=== PATIENT | female | born 1980 | race Caucasian/White ===

== ENCOUNTER → 2019-02-09 | Outpatient (CLI) | payer OTHER ==
--- NOTE | 2019-02-09 10:23 | US ---
EXAMINATION TYPE: US OB >= 14 wk fetus DATE OF EXAM: 02/09/2019 COMPARISON: None CLINICAL HISTORY: O36.63x0 large for dates,third trimester For Size and ALLAN TECHNIQUE: Transabdominal (TA) GESTATIONAL AGE / DATING Physician Established: (32 weeks/2 days) EDC: 04/04/2019 Dates by LMP: Unknown Dates by First Scan: No prior Dates by Current Scan: (32 weeks/0 days) EDC: 04/06/2019 SURVEY IUP: Single PLACENTA: Posterior PREVIA: No Previa ALLAN: 17.3 cm Normal CERVICAL LENGTH (transabdominal: norm > 3.0cm): 3.4 cm BIOMETRY PRESENTATION: Vertex BPD: 8.3 cm 33 weeks / 2 days HC: 29.9 cm 33 weeks / 1 days AC: 28.5 cm 32 weeks / 4 days FL: 6.0 cm 31 weeks / 3 days ESTIMATED WEIGHT IN GRAMS: 1949 grams ESTIMATED WEIGHT IN LBS/OZ: 4 lbs. 5 oz. WEIGHT PERCENTAGE BASED ON ESTABLISHED DATES: 40.3% HC/AC: 1.05 Normal FL/AC: 21 Normal HEART RATE: 158 bpm RHYTHM: Normal Single, live IUP, growth in 40th percentile IMPRESSION: Live intrauterine with a calculated sonographic age of 32 weeks and 0 days and estimated da te of delivery of 04/06/2010, concordant with menstrual age. Weight percentage based on established da zack of 40.3%. Amniotic fluid index is within normal limits at 17.3 cm.
== END ==
LOC: RADUSWWP 09:45
PROVIDERS: ATTEND Obstetrics & Gynecology
DX: O36.63X0 Maternal care for excessive fetal growth, third trimester, not applicable or unspecified (principal); Z3A.32 32 weeks gestation of pregnancy
CPT/HCPCS: 76805

== ENCOUNTER 2019-04-07 12:18 | Outpatient (CLI) | payer OTHER ==
[2019-04-07 13:07] VITALS: BP 121/73; PULSE 90; RESP 16; TEMP 98.4
--- NOTE | 2019-04-07 13:47 | US ---
EXAMINATION TYPE: US OB limited DATE OF EXAM: 04/07/2019 COMPARISON: NONE CLINICAL HISTORY: post-dates. ALLAN and EFW only EXAM PERFORMED: Transabdominal (TA) GESTATIONAL AGE / DATING Physician Established: (40 weeks/3 days) EDC: 04/04/2019 Dates by Current Scan: (39 weeks/4 days) EDC: 04/10/2019 No growth performed on today?s study per ordering physician SURVEY ALLAN: 12 cm Normal (Tech?if abnormal transabdominally?image transvaginally to substantiate abnormality.) PRESENTATION: Vertex HEART RATE: 165 bpm RHYTHM: Normal IMPRESSION: 1. Single intrauterine gestation estimated at 39 weeks 4 days gestation based on current ultrasound m easurements. Cardiac activity measures 165 bpm. 2. Amniotic fluid index is 12
== END 2019-04-07 13:45 | disposition home or self-care (01) ==
LOC: FBPOP 12:18
PROVIDERS: ATTEND Obstetrics & Gynecology
DX: O48.0 Post-term pregnancy (principal); Z3A.40 40 weeks gestation of pregnancy
CPT/HCPCS: 59025; 76815

== ENCOUNTER 2019-04-08 01:07 | Inpatient (IN) | payer OTHER ==
[2019-04-08] MEDS ORDERED: TERBUTALINE 1 MG/ML VIAL SQ PRN (01:34)
[2019-04-08] MEDS ORDERED: METHYLERGONOVINE 0.2 MG/ML 1 ML AMP IM PRN (01:34)
[2019-04-08] MEDS ORDERED: CARBOPROST TROMETHAMINE 250 MCG/ML 1 ML AMP IM PRN (01:34)
[2019-04-08] MEDS ORDERED: LIDOCAINE 0.5% (PF) 5 MG/ML (50 ML SDV) SQ PRN (01:34)
[2019-04-08] MEDS ORDERED: OXYTOCIN 10 UNIT/ML 1 ML VIAL IM PRN (01:34)
[2019-04-08] MEDS ORDERED: LACTATED RINGERS 1,000 ML IV SCH (01:45)
[2019-04-08 01:47] VITALS: BMI 31.6
[2019-04-08 01:55] LABS: Anisocytosis Moderate; Basophils # (A) 0.1 k/uL (0-0.2); Basophils % (A) 1 %; Eosinophils # (A) 0.1 k/uL (0-0.7); Eosinophils % (A) 1 %; HCT 38.4 % (34.0-46.0); HGB 12.3 gm/dL (11.4-16.0); Lymphocytes # (A) 0.9 k/uL (1.0-4.8); Lymphocytes % (A) 8 %; MCH 28.7 pg (25.0-35.0); MCHC 31.9 g/dL (31.0-37.0); MCV 89.9 fL (80.0-100.0); Mean Platelet Volume 8.7; Monocytes # (A) 0.7 k/uL (0-1.0); Monocytes % (A) 6 %; Neutrophils # (A) 9.1 k/uL (1.3-7.7); Neutrophils % (A) 82 %; Platelet Count 195 k/uL (150-450); RBC 4.27 m/uL (3.80-5.40); RDW 20.9 % (11.5-15.5)
[2019-04-08] MEDS ORDERED: diphenhydrAMINE 25 MG CAP PO PRN (03:03)
[2019-04-08] MEDS ORDERED: ACETAMINOPHEN TAB 325 MG TAB PO PRN (03:03)
[2019-04-08] MEDS ORDERED: HYDROCORTISONE 2.5% RECTAL CREAM 30 GM TUBE RECTAL PRN (03:03)
[2019-04-08] MEDS ORDERED: diphenhydrAMINE 50 MG/ML 1 ML VIAL IVP PRN ×2 (03:03)
[2019-04-08] MEDS ORDERED: diphenhydrAMINE 50 MG CAP PO PRN (03:03)
[2019-04-08] MEDS ORDERED: SIMETHICONE 80 MG CHEWABLE PO PRN (03:03)
[2019-04-08] MEDS ORDERED: BENZOCAINE/MENTHOL SPRAY 1 GM/SPRAY AEROSOL TOPICAL PRN (03:03)
[2019-04-08] MEDS ORDERED: ZOLPIDEM 5 MG TAB PO PRN (03:03)
[2019-04-08] MEDS ORDERED: WITCH HAZEL 1 EACH MED..PAD TOPICAL PRN (03:03)
[2019-04-08] MEDS ORDERED: LANOLIN CREAM 5 GM TUBE TOPICAL PRN (03:03)
--- NOTE | 2019-04-08 03:06 | P.HPOB ---
History of Present Illness H&P Date: 04/08/19 Chief Complaint: Intrauterine at 40 weeks: Active labor Megan is a 38-year-old at 40 weeks 4 days gestation arrives in active labor dilated 7 cm. Her course has been, complicated by advanced maternal age for which she is been receiving nonstress tests since approximately 34 weeks. She voices no other problems or complaints and did transfer to [facility] at approximately 26 weeks. Past medical history is generally unremarkable. Pertinent labs include O+ blood type, Rh and it was negative, rubella immune, hepatitis B surface antigen RPR and GBS were all negative. heart tones are reactive with baseline in the 140s. Past Medical History Past Medical History: No Reported History History of Any Multi-Drug Resistant Organisms: None Reported Additional Past Surgical History / Comment(s): [employer] tooth extraction Past Anesthesia/Blood Transfusion Reactions: No Reported Reaction Past Psychological History: No Psychological Hx Reported Smoking Status: Never smoker Past Alcohol Use History: None Reported Past Drug Use History: None Reported - Past Family History Mother Family Medical History: No Reported History Medications and Allergies Home Medications Medication Instructions Recorded Confirmed Type Pnv No.95/Ferrous Fum/Folic AC 1 each PO DAILY 03/03/19 04/08/19 History [ Multivitamin Tablet] Allergies Allergy/AdvReac Type Severity Reaction Status Date / Time amoxicillin Allergy Dyspnea Verified 04/08/19 01:33 erythromycin base Allergy Dyspnea Verified 04/08/19 01:33 Exam Osteopathic Statement: *. No significant issues noted on an osteopathic structural exam other than those noted in the History and Physical/Consult. Vital Signs Temp Pulse Resp BP 04/08/19 01:47 97.3 F L 109 H 16 126/86 04/08/19 01:42 97.3 F L 109 H 16 126/86 Intake and Output 04/07/19 04/07/19 04/08/19 14:59 22:59 06:59 Other: # Voids 2 Weight 88.904 kg - OBG Physical Exam Breast: both: normal (no masses) Abdomen: bowel sounds normal, no diffuse tenderness, no bruit present, no guarding noted, no hepatomegaly, no splenomegaly, no mass Vulva: both: normal Vagina: normal moisture, no discharge Cervix: no lesion, no discharge Uterus: normal size, normal contour Adnexa: both: normal Anus/Rectum: normal perianal skin, no rectal mass, no hemorrhoids, heme negative Results Result Diagrams: 04/08/19 01:40 Abnormal Lab Results - Last 24 Hours (Table) 04/08/19 Range/Units 01:40 WBC 11.0 H (3.8-10.6) k/uL RDW 20.9 H (11.5-15.5) % Neutrophils # 9.1 H (1.3-7.7) k/uL Lymphocytes # 0.9 L (1.0-4.8) k/uL
--- NOTE | 2019-04-08 03:07 | P.PROBDLV ---
Vaginal Delivery Note - . Vaginal Delivery Note: Patient progressed complete and pushing with spontaneous vaginal delivery of a viable female over a first-degree perineal laceration. Following delivery of the head a nuchal cord 1 was noted but was too taut and baby was therefore delivered through the nuchal cord from right occiput anterior position. Once baby was fully delivered mouth nares were bulb suctioned and baby was placed mother's abdomen where the umbilical cord was allowed to pulsate for 40 seconds prior to clamping and cutting. Nursery personnel was present and assumed care. Placenta was then delivered intact and Pitocin was added to the IV. scores were 9 and 9 at one and 5 minutes respectfully. First degree laceration was then repaired in interrupted fashion with 3-0 Vicryl following 1% Xylocaine for analgesia. Baby's weight is currently pending, but both mother and baby currently appear stable following delivery.
[2019-04-08] MEDS ORDERED: OXYTOCIN 20 UNITS/1000 ML NS 1,000 ML IV SCH (03:15)
[2019-04-08] MEDS: IBUPROFEN 600 MG TAB PO PRN ×3 (03:19→17:08)
--- NOTE | 2019-04-08 08:39 | P.PNOBGVD ---
Subjective - Subjective Principal diagnosis: day 0 Interval history: Doing very well this morning. All questions are answered for her at this time. Patient reports: Reports appetite normal, Reports voiding normally, Reports pain well controlled, Reports ambulating normally [place]: doing well Objective - Latest Vital Signs Latest vital signs: Vital Signs Temp Pulse Resp BP 04/08/19 08:00 98.3 F 71 16 122/73 04/08/19 04:50 65 16 115/71 04/08/19 04:20 81 16 108/70 04/08/19 03:50 74 16 113/68 04/08/19 03:35 83 16 121/69 04/08/19 03:20 92 16 114/64 04/08/19 03:05 96 16 112/63 04/08/19 02:50 98.3 F 105 H 16 118/67 04/08/19 01:47 97.3 F L 109 H 16 126/86 04/08/19 01:42 97.3 F L 109 H 16 126/86 Intake and Output 04/07/19 04/08/19 04/08/19 22:59 06:59 14:59 Other: # Voids 1 Weight 88.904 kg - Labs Labs: Abnormal Lab Results - Last 24 Hours (Table) 04/08/19 Range/Units 01:40 WBC 11.0 H (3.8-10.6) k/uL RDW 20.9 H (11.5-15.5) % Neutrophils # 9.1 H (1.3-7.7) k/uL Lymphocytes # 0.9 L (1.0-4.8) k/uL
[2019-04-08] MEDS: SENNOSIDES-DOCUSATE SODIUM 1 EACH TAB PO SCH ×2 (08:42→19:56)
[2019-04-09 00:27] VITALS: BP 109/50
[2019-04-09] MEDS: SENNOSIDES-DOCUSATE SODIUM 1 EACH TAB PO SCH (08:08)
--- NOTE | 2019-04-09 08:25 | P.DS ---
Providers Date of admission: 04/08/19 01:17 Expected date of discharge: 04/09/19 Attending physician: Luis A Vidal Primary care physician: Stated None Hospital Course: Megan is doing very well day 1. She is involuting, voiding and tolerating her diet. She voices no complaints. Vital signs are stable and afebrile. Heart regular, lungs clear, extremities are without pain. Abdomen is soft uterus is firm and lochia is reported to be light. Assessment day 1. Plan discharged home follow up with me in 6 weeks. Other discharge instructions are reviewed and patient is had all of her questions answered. She is stable for discharge this time. Patient Condition at Discharge: Good Plan - Discharge Summary New Discharge Prescriptions: No Action Pnv No.95/Ferrous Fum/Folic AC [ Multivitamin Tablet] 1 each PO DAILY Discharge Medication List Pnv No.95/Ferrous Fum/Folic AC [ Multivitamin Tablet] 1 each PO DAILY 03/03/19 [History] Follow up Appointment(s)/Referral(s): Luis A Vidal DO [Doctor of Osteopathic Medicine] - 6 Weeks Activity/Diet/Wound Care/Special Instructions: No heavy lifting, limit stairs and driving, and pelvic rest. If any high temperatures, heavy bleeding, or severe pain call my office Discharge Disposition: HOME SELF-CARE
[2019-04-09 08:33] VITALS: PULSE 86; RESP 18; TEMP 98.3
[2019-04-09] MEDS: IBUPROFEN 600 MG TAB PO PRN (10:36)
== END 2019-04-09 11:14 | disposition home or self-care (01) | DRG 807 ==
LOC: FBPOP 01:07 → 4FBP 01:17
PROVIDERS: ADMIT Obstetrics & Gynecology; ATTEND Obstetrics & Gynecology
PROC: 10E0XZZ Delivery of Products of Conception, External Approach (ICD-10-PCS; principal; 2019-04-08)
PROC: 0HQ9XZZ Repair Perineum Skin, External Approach (ICD-10-PCS; principal; 2019-04-08)
DX: O80 Encounter for full-term uncomplicated delivery (principal); Z37.0 Single live birth; O70.0 First degree perineal laceration during delivery; Z3A.40 40 weeks gestation of pregnancy; Z88.1 Allergy status to other antibiotic agents; Z88.0 Allergy status to penicillin
CPT/HCPCS: 59025; 85025; 86850; 86900; 86901; 99213

== ENCOUNTER 2023-09-11 12:49 | Emergency (ER) | payer OTHER ==
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
[2023-09-11 13:56] VITALS: RESP 18
[2023-09-11 13:59] LABS: HCT 34.9 % (34.0-46.0); HGB 11.6 gm/dL (11.4-16.0); MCH 31.5 pg (25.0-35.0); MCHC 33.3 g/dL (31.0-37.0); MCV 94.4 fL (80.0-100.0); Mean Platelet Volume 9.3; Platelet Count 208 k/uL (150-450); WBC 10.6 k/uL (3.8-10.6)
[2023-09-11 14:05] LABS: Appearance,Urine Clear (Clear); Bilirubin,Urine Negative (Negative); Blood,Urine Negative (Negative); Color,Urine Light Yellow; Glucose,Urine (UA) Negative (Negative); Ketones,Urine Negative (Negative); Leukocyte Esterase,Urine Negative (Negative); Nitrite,Urine Negative (Negative); PH, Urine 5.5 (5.0-8.0); Protein,Urine Negative (Negative); Specific Gravity,Urine 1.026 (1.001-1.035); Urobilinogen,Urine <2.0 mg/dL (<2.0)
[2023-09-11 14:13] LABS: ALT 18 U/L (4-34); AST 22 U/L (14-36); African American GFR (CKD) >90 (>60 ml/min/1.73 sqM); Albumin 3.7 g/dL (3.5-5.0); Alkaline Phosphatase 98 U/L (38-126); Anion Gap 7 mmol/L; Blood Urea Nitrogen 11 mg/dL (7-17); Calcium 9.4 mg/dL (8.4-10.2); Carbon Dioxide 23 mmol/L (22-30); Chloride 108 mmol/L (98-107); Glucose 101 mg/dL (74-99); Non-African American GFR(CKD) >90 (>60 ml/min/1.73 sqM); Potassium 3.8 mmol/L (3.5-5.1); Sodium 138 mmol/L (137-145); Total Bilirubin 0.3 mg/dL (0.2-1.3); Total Protein 6.7 g/dL (6.3-8.2)
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
[2023-09-11 14:53] LABS: HCG,Quantitative Serum 21407.8 mIU/mL
[2023-09-11 15:39] VITALS: BP 128/88; PULSE 97; TEMP 98.2
== END 2023-09-11 15:18 | disposition home or self-care (01) ==
LOC: EC 12:49
DX: O9A.212 Injury, poisoning and certain other consequences of external causes complicating pregnancy, second trimester (principal); S39.91XA Unspecified injury of abdomen, initial encounter; Z3A.23 23 weeks gestation of pregnancy; Z88.0 Allergy status to penicillin; Z88.1 Allergy status to other antibiotic agents; Y04.8XXA Assault by other bodily force, initial encounter
CPT/HCPCS: 36415; 76805; 80053; 81003; 84702; 85027; 86900; 86901; 99284